=== PATIENT | male | born 1970 | race Caucasian/White ===

== ENCOUNTER 2018-02-26 17:56 | Observation (INO) | payer BC ==
[~2018-02-26] VITALS: Ht 177.8 cm; Wt 70.0 kg
[2018-02-26] MEDS ORDERED: SODIUM CHLOR 0.9% 1000 ML INJ 1,000 ML IV ONE ×2 (18:05→18:15)
[2018-02-26 18:08] VITALS: BP 129/73; PULSE 66; RESP 16; TEMP 98.7; O2SAT 98
--- NOTE | 2018-02-26 18:08 | PD ---
HPI Chief Complaint: Overdose Time Seen by Provider: 18:03 Travel History International Travel<30 days: No Contact w/Intl Traveler<30days: No History of Present Illness HPI 47-year-old male arrives by EMS due to multiple medication overdose. Patient reportedly took two hundred 100 mg gabapentin tablets, forty 40 mg Prozac tablets and ten 0.5 mg Xanax tablets approximately 4 hours prior to ER arrival. The ingestion was a suicide attempt. History is provided by EMS. [facility] Social History Tobacco Use: No Allergies-Medications (Allergen,Severity, Reaction): Coded Allergies: paroxetine (Verified Allergy, Unknown, Rash, 02/26/18) Review of Systems ROS Limitations: Altered Mental Status, Uncooperative General / Constitutional: No: Fever Physical Exam Narrative GENERAL: 47-year-old male pleasant well-nourished well-developed Vital Signs Date Time Temp Pulse Resp B/P (MAP) Pulse Ox O2 Delivery O2 Flow Rate FiO2 02/26/18 18:24 68 16 128/76 (93) 98 Room Air 02/26/18 18:09 66 17 96 Room Air 02/26/18 18:08 98.7 66 16 129/73 (91) 98 SKIN: Warm and dry. HEAD: Atraumatic. Normocephalic. EYES: Pupils equal and round. No scleral icterus. No injection or drainage. ENT: No nasal bleeding or discharge. Mucous membranes pink and moist. NECK: Trachea midline. No JVD. CARDIOVASCULAR: Regular rate and rhythm. RESPIRATORY: No accessory muscle use. Clear to auscultation. Breath sounds equal bilaterally. GASTROINTESTINAL: Abdomen soft, non-tender, nondistended. Hepatic and splenic margins not palpable. MUSCULOSKELETAL: Extremities without clubbing, cyanosis, or edema. No obvious deformities. NEUROLOGICAL: Awake and alert. No obvious cranial nerve deficits. Motor grossly within normal limits. Five out of 5 muscle strength in the arms and legs. Normal speech. PSYCHIATRIC: Apparent suicidal attempt. Data Data Last Documented VS Vital Signs Date Time Temp Pulse Resp B/P (MAP) Pulse Ox O2 Delivery O2 Flow Rate FiO2 02/26/18 18:24 68 16 128/76 (93) 98 Room Air 02/26/18 18:08 98.7 Orders Orders Electrocardiogram (02/26/18 18:05) Complete Blood Count With Diff (02/26/18 18:05) Comprehensive Metabolic Panel (02/26/18 18:05) Prothrombin Time / Inr (Pt) (02/26/18 18:05) Act Partial Throm Time (Ptt) (02/26/18 18:05) Iv Access Insert/Monitor (02/26/18 18:05) Cath For Specimen (02/26/18 18:05) Ecg Monitoring (02/26/18 18:05) Oximetry (02/26/18 18:05) Psych Screen (02/26/18 18:05) Charcoal Activated Liq (Actidose-Aqua Li (02/26/18 18:15) Sodium Chloride 0.9% Flush (Ns Flush) (02/26/18 18:15) Sodium Chlor 0.9% 1000 Ml Inj (Ns 1000 M (02/26/18 18:05) Call Poison Control (02/26/18 18:05) Drug Screen, Random Urine (02/26/18 18:05) Alcohol (Ethanol) (02/26/18 18:05) Salicylates (Aspirin) (02/26/18 18:05) Tylenol (Acetaminophen) (02/26/18 18:05) Sodium Chlor 0.9% 1000 Ml Inj (Ns 1000 M (02/26/18 18:15) Admit Order (Ed Use Only) (02/26/18 ) Equalizing Saw Operator / Telemetry LONG.Q8H (02/26/18 19:52) Vital Signs (Adult) Q4H (02/26/18 19:52) Activity Bed Rest (02/26/18 19:52) Labs Laboratory Tests Test 02/26/18 18:23 White Blood Count 7.1 TH/MM3 Red Blood Count 4.53 MIL/MM3 Hemoglobin 15.7 GM/DL Hematocrit 45.3 % Mean Corpuscular Volume 100.0 FL Mean Corpuscular Hemoglobin 34.6 PG Mean Corpuscular Hemoglobin Concent 34.6 % Red Cell Distribution Width 13.9 % Platelet Count 245 TH/MM3 Mean Platelet Volume 8.2 FL Neutrophils (%) (Auto) 69.5 % Lymphocytes (%) (Auto) 20.4 % Monocytes (%) (Auto) 8.7 % Eosinophils (%) (Auto) 0.6 % Basophils (%) (Auto) 0.8 % Neutrophils # (Auto) 5.0 TH/MM3 Lymphocytes # (Auto) 1.5 TH/MM3 Monocytes # (Auto) 0.6 TH/MM3 Eosinophils # (Auto) 0.0 TH/MM3 Basophils # (Auto) 0.1 TH/MM3 CBC Comment DIFF FINAL Differential Comment Prothrombin Time 11.3 SEC Prothromb Time International Ratio 1.1 RATIO Activated Partial Thromboplast Time 25.6 SEC Blood Urea Nitrogen 11 MG/DL Creatinine 0.89 MG/DL Random Glucose 91 MG/DL Total Protein 7.7 GM/DL Albumin 4.2 GM/DL Calcium Level 8.8 MG/DL Alkaline Phosphatase 69 U/L Aspartate Amino Transf (AST/SGOT) 21 U/L Alanine Aminotransferase (ALT/SGPT) 32 U/L Total Bilirubin 0.7 MG/DL Sodium Level 141 MEQ/L Potassium Level 4.0 MEQ/L Chloride Level 108 MEQ/L Carbon Dioxide Level 28.9 MEQ/L Anion Gap 4 MEQ/L Estimat Glomerular Filtration Rate 91 ML/MIN Salicylates Level LESS THAN 1.7 MG/DL Acetaminophen Level LESS THAN 2.0 MCG/ML Ethyl Alcohol Level LESS THAN 3 MG/DL MDM Medical Decision Making Medical Screen Exam Complete: Yes Emergency Medical Condition: Yes Medical Record Reviewed: Yes Differential Diagnosis Altered mental status/psychosis due to infection/environmental exposure/ metabolic abnormality, polypharmacy, alcohol abuse/intoxication, illicit or prescribed drug abuse, malingering/secondary gain, non-organic psychiatric disease Narrative Course .CBC & BMP Diagram 02/26/18 18:23 Total Protein 7.7, Albumin 4.2, Calcium Level 8.8, Alkaline Phosphatase 69, Aspartate Amino Transf (AST/SGOT) 21, Alanine Aminotransferase (ALT/SGPT) 32, Total Bilirubin 0.7 Salicylates < 1.7 apap < 2.0 EtOH < 3 The patient has remained hemodynamically normal in the ER. Given the quantity of overdose medications ongoing monitoring considered appropriate. Poison Control Center advised ongoing supportive care along with a repeat EKG at 2 hours following the initial one. Both EKGs reveal no ischemic injury pattern preexcitation or interval prolongation. d/w Dr Moreon Critical Care Narrative Aggregate critical care time was 35 minutes. Time to perform other separately billable procedures was not included in the critical care time. My time did not include minutes spent treating any other patients simultaneously or on activities that did not directly contribute to the patient's treatment. The services I provided to this patient were to treat and/or prevent clinically significant deterioration that could result in: due to overdose I provided critical care services requiring my management, as noted below: Chart data review, documentation time, medication orders and management, vital sign assessments/reviewing monitor data, ordering and reviewing lab tests, ordering and interpreting/reviewing x-rays and diagnostic studies, care of the patient and discussion of the patient with the admitting physicians. Diagnosis Primary Impression: Gabapentin overdose Qualified Codes: T42.6X2A - Poisoning by other antiepileptic and sedative- hypnotic drugs, intentional self-harm, initial encounter Additional Impressions: Benzodiazepine overdose Qualified Codes: T42.4X2A - Poisoning by benzodiazepines, intentional self- harm, initial encounter Intentional SSRI (selective serotonin reuptake inhibitor) overdose Qualified Codes: T43.222A - Poisoning by selective serotonin reuptake inhibitors, intentional self-harm, initial encounter Admitting Information Admitting Physician Requests: Han Wray MD Feb 26, 2018 18:08
[2018-02-26] MEDS ORDERED: SODIUM CHLORIDE 0.9% FLUSH 10 ML FLUSH IVF PRN (18:15)
[2018-02-26] MEDS ORDERED: ACTIVATED CHARCOAL LIQUID 25 GM/120 ML BTL PO/NG ONE (18:15)
[2018-02-26 18:24] VITALS: BP 128/76; PULSE 68; RESP 16; O2SAT 98
[2018-02-26 18:33] LABS: BASOPHIL # 0.1 TH/MM3 (0-0.2); BASOPHIL % 0.8 % (0.0-2.0); EOSINOPHIL % 0.6 % (0.0-4.0); HEMATOCRIT 45.3 % (39.0-51.0); HEMOGLOBIN 15.7 GM/DL (13.0-17.0); LYMPH % 20.4 % (9.0-44.0); LYMPHOCYTE # 1.5 TH/MM3 (1.0-4.8); MEAN CORPUSCULAR HEMOGLOBIN 34.6 PG (27.0-34.0); MEAN CORPUSCULAR HGB CONC 34.6 % (32.0-36.0); MEAN PLATELET VOLUME 8.2 FL (7.0-11.0); MONO % 8.7 % (0.0-8.0); MONOCYTE # 0.6 TH/MM3 (0-0.9); NEUT % 69.5 % (16.0-70.0); PLATELET COUNT 245 TH/MM3 (150-450); RED BLOOD COUNT 4.53 MIL/MM3 (4.50-5.90); RED CELL DISTRIBUTION WIDTH 13.9 % (11.6-17.2); WHITE BLOOD COUNT 7.1 TH/MM3 (4.0-11.0)
[2018-02-26 18:51] LABS: INTERNATIONAL NORMALIZED RATIO 1.1 RATIO; PROTHROMBIN TIME - PATIENT 11.3 SEC (9.8-11.6)
[2018-02-26 18:53] LABS: ALBUMIN 4.2 GM/DL (3.4-5.0); BICARBONATE 28.9 MEQ/L (21.0-32.0); BLOOD UREA NITROGEN 11 MG/DL (7-18); CALCIUM 8.8 MG/DL (8.5-10.1); CHLORIDE 108 MEQ/L (98-107); CREATININE 0.89 MG/DL (0.60-1.30); GLOMERULAR FILTRATION RATE 91 ML/MIN (>89); GLUCOSE,RANDOM 91 MG/DL (74-106); SODIUM (NA) 141 MEQ/L (136-145)
[2018-02-26 18:55] LABS: AST (GOT) 21 U/L (15-37)
[2018-02-26 18:59] LABS: ALKALINE PHOSPHATASE 69 U/L (45-117); ALT (GPT) 32 U/L (12-78); TOTAL BILIRUBIN ADULT 0.7 MG/DL (0.2-1.0); TOTAL PROTEIN 7.7 GM/DL (6.4-8.2)
[2018-02-26 19:01] LABS: ACETAMINOPHEN LESS THAN 2.0 MCG/ML (10.0-30.0)
[2018-02-26 19:58] VITALS: BP 121/75; PULSE 60; RESP 20; TEMP 98; O2SAT 98
--- NOTE | 2018-02-26 20:14 | HHI.HP ---
[facility] [place] [facility] Primary Care Physician No Primary Care Physician Admission Diagnosis Gabapentin/Xanax/Prozac Overdose Diagnoses: (1) Overdose Diagnosis: Principal (2) Suicide attempt Diagnosis: Principal Travel History International Travel<30 Days: No Contact w/Intl Traveler <30 Da: No Traveled to Known Affected Are: No History of Present Illness This is a 47-year-old male with a PMH of Depression who was brought to the ER under Leiva Act for intentional overdose. Pt states he took approx 200 tablets of Gabapentin 100mg, 40 tablets of Prozac 40mg and 10 tablets of Xanax 0.5mg at approx 15:00. Pt apparently called his work and told them he was going to overdose and kill himself due to issue at work where money was missing and he was told he didn't follow procedure. S/p Activated Charcoal in ER. Lethargic, but arousable and conversive. BP 129/73, HR 66, O2 sat 98% RA, Afebrile. CBC unremarkable. Chemistry essentially unremarkable. INR 1.1. Urine Drug Screen positive for Benzo. Alcohol negative. Tylenol negative. Salicylate negative. Review of Systems Except as stated in HPI: all other systems reviewed are Neg ROS: 14 point review of systems otherwise negative. Past Family Social History Past Medical History PMH: Depression Past Surgical History PAST SURGICAL HISTORY: None Allergies: Coded Allergies: paroxetine (Verified Allergy, Unknown, Rash, 02/26/18) Family History PAST FAMILY HISTORY: Reviewed. No h/o DM or CAD Social History PAST SOCIAL HISTORY: Reportedly negative for alcohol, tobacco or drugs. Physical Exam Vital Signs Vital Signs Date Time Temp Pulse Resp B/P (MAP) Pulse Ox O2 Delivery O2 Flow Rate FiO2 02/26/18 19:58 98.0 60 20 121/75 (90) 98 Room Air 02/26/18 18:24 68 16 128/76 (93) 98 Room Air 02/26/18 18:09 66 17 96 Room Air 02/26/18 18:08 98.7 66 16 129/73 (91) 98 Physical Exam PE: GENERAL: Middle-aged white male in no acute distress, lethargic but conversive, able to answer questions. HEENT: PERRLA, EOMI. No scleral icterus or conjunctival pallor. No lid lag or facial droop. CARDIOVASCULAR: Regular rate and rhythm. No obvious murmurs to auscultation. No chest tenderness to palpation. RESPIRATORY: No obvious rhonchi or wheezing. Clear to auscultation. Breath sounds equal bilaterally. GASTROINTESTINAL: Abdomen soft, non-tender, nondistended. BS normal. MUSCULOSKELETAL: Extremities without clubbing, cyanosis, or edema. No obvious deformities. NEUROLOGICAL: Lethargic but arousable, oriented x4. No focal neurologic deficits. Moving both upper and lower extremities spontaneously. Laboratory Laboratory Tests Test 02/26/18 18:23 White Blood Count 7.1 Red Blood Count 4.53 Hemoglobin 15.7 Hematocrit 45.3 Mean Corpuscular Volume 100.0 Mean Corpuscular Hemoglobin 34.6 Mean Corpuscular Hemoglobin Concent 34.6 Red Cell Distribution Width 13.9 Platelet Count 245 Mean Platelet Volume 8.2 Neutrophils (%) (Auto) 69.5 Lymphocytes (%) (Auto) 20.4 Monocytes (%) (Auto) 8.7 Eosinophils (%) (Auto) 0.6 Basophils (%) (Auto) 0.8 Neutrophils # (Auto) 5.0 Lymphocytes # (Auto) 1.5 Monocytes # (Auto) 0.6 Eosinophils # (Auto) 0.0 Basophils # (Auto) 0.1 CBC Comment DIFF FINAL Differential Comment Prothrombin Time 11.3 Prothromb Time International Ratio 1.1 Activated Partial Thromboplast Time 25.6 Blood Urea Nitrogen 11 Creatinine 0.89 Random Glucose 91 Total Protein 7.7 Albumin 4.2 Calcium Level 8.8 Alkaline Phosphatase 69 Aspartate Amino Transf (AST/SGOT) 21 Alanine Aminotransferase (ALT/SGPT) 32 Total Bilirubin 0.7 Sodium Level 141 Potassium Level 4.0 Chloride Level 108 Carbon Dioxide Level 28.9 Anion Gap 4 Estimat Glomerular Filtration Rate 91 Salicylates Level LESS THAN 1.7 Acetaminophen Level LESS THAN 2.0 Ethyl Alcohol Level LESS THAN 3 Result Diagram: 02/26/18 18202/[id number]/181822 Caprini VTE Risk Assessment Caprini VTE Risk Assessment: No/Low Risk (score <= 1) Caprini Risk Assessment Model Point Value = 1 Point Value = 2 Point Value = 3 Point Value = 5 Age 41-60 Minor surgery BMI > 25 kg/m2 Swollen legs Varicose veins or History of unexplained or recurrent spontaneous Oral contraceptives or hormone replacement Sepsis (< 1 month) Serious lung disease, including pneumonia (< 1 month) Abnormal pulmonary function Acute myocardial infarction Congestive heart failure (< 1 month) History of inflammatory bowel disease Medical patient at bed rest Age 61-74 Arthroscopic surgery Major open surgery (> 45 min) Laparoscopic surgery (> 45 min) Malignancy Confined to bed (> 72 hours) Immobilizing plaster cast Central venous access Age >= 75 History of VTE Family history of VTE Factor V Leiden Prothrombin [id number] Lupus anticoagulant Anticardiolipin antibodies Elevated serum homocysteine Heparin-induced thrombocytopenia Other congenital or acquired thrombophilia Stroke (< 1 month) Elective arthroplasty Hip, pelvis, or leg fracture Acute spinal cord injury (< 1 month) Prophylaxis Regimen Total Risk Factor Score Risk Level Prophylaxis Regimen 0-1 Low Early ambulation 2 Moderate Order ONE of the following: *Sequential Compression Device (SCD) *Heparin 5000 units SQ BID 3-4 Higher Order ONE of the following medications: *Heparin 5000 units SQ TID *Enoxaparin/Lovenox 40 mg SQ daily (WT < 150 kg, CrCl > 30 mL/min) *Enoxaparin/Lovenox 30 mg SQ daily (WT < 150 kg, CrCl > 10-29 mL/min) *Enoxaparin/Lovenox 30 mg SQ BID (WT < 150 kg, CrCl > 30 mL/min) AND/OR *Sequential Compression Device (SCD) 5 or more Highest Order ONE of the following medications: *Heparin 5000 units SQ TID (Preferred with Epidurals) *Enoxaparin/Lovenox 40 mg SQ daily (WT < 150 kg, CrCl > 30 mL/min) *Enoxaparin/Lovenox 30 mg SQ daily (WT < 150 kg, CrCl > 10-29 mL/min) *Enoxaparin/Lovenox 30 mg SQ BID (WT < 150 kg, CrCl > 30 mL/min) AND *Sequential Compression Device (SCD) Assessment and Plan Problem List: (1) Overdose ICD Code: T50.901A - Poisoning by unspecified drugs, medicaments and biological substances, accidental (unintentional), initial encounter (2) Suicide attempt ICD Code: T14.91XA - Suicide attempt, initial encounter Assessment and Plan A/P: 1. Overdose: Intentional overdose, took approx 200 tablets of Gabapentin 100mg , 40 tablets of Prozac 40mg and 10 tablets of Xanax 0.5mg approx 4 hours prior to arrival. S/p activated charcoal. Admit for Observation, Telemetry, Seizure Precautions, IVF, Neuro Cheks. 2. Suicide Attempt: intentional drug overdose in attempt to kill himself, currently under Leiva Act, consult Psych, Sitter. 3. DVT Prophylaxis: SCD/Teds 4. Social work for d/c planning as needed. 5. Case discussed w/ ER physician at length, labs/records reviewed by me. Pebbles Moreno MD Feb 26, 2018 20:14
[2018-02-26] MEDS ORDERED: SODIUM CHLORIDE 0.9% FLUSH 10 ML FLUSH IV FLUSH PRN (20:15)
[2018-02-26] MEDS ORDERED: LACTULOSE SYRUP 20 GM/30 ML CUP PO PRN (20:15)
[2018-02-26] MEDS ORDERED: BISACODYL 10 MG SUPP RECTAL PRN (20:15)
[2018-02-26] MEDS ORDERED: ONDANSETRON HCL 4 MG/2 ML VIAL IVP PRN (20:15)
[2018-02-26] MEDS ORDERED: MAGNESIUM HYDROXIDE SUSP 30 ML CUP PO PRN (20:15)
[2018-02-26] MEDS ORDERED: ACETAMINOPHEN 325 MG TAB PO PRN (20:15)
[2018-02-26] MEDS ORDERED: SENNOSIDES 8.6 MG TAB PO PRN (20:15)
[2018-02-26] MEDS: SODIUM CHLOR 0.9% 1000 ML INJ 1,000 ML IV SCH (20:39)
[2018-02-26] MEDS: SODIUM CHLORIDE 0.9% FLUSH 10 ML FLUSH IV FLUSH SCH (20:40)
[2018-02-26] MEDS: DOCUSATE SODIUM 50 MG/SENNA 8.6 MG TAB PO SCH (21:00)
[2018-02-26 22:00] VITALS: BP 113/61; PULSE 60; RESP 20; O2SAT 98
[2018-02-27] VITALS (9 sets, daily range): BP systolic 103–129; BP diastolic 54–74; PULSE 6–64; RESP 16–20; TEMP 96.3–98.2; O2SAT 95–98
[2018-02-27] MEDS ORDERED: GABA100C4 PO (02:11)
[2018-02-27] MEDS ORDERED: ALPR0.5T3 PO (02:11)
[2018-02-27] MEDS ORDERED: FLUO40CA PO (02:11)
[2018-02-27] MEDS: SODIUM CHLOR 0.9% 1000 ML INJ 1,000 ML IV SCH ×2 (06:02→16:48)
[2018-02-27] MEDS: SODIUM CHLORIDE 0.9% FLUSH 10 ML FLUSH IV FLUSH SCH ×2 (09:00→21:03)
[2018-02-27] MEDS: DOCUSATE SODIUM 50 MG/SENNA 8.6 MG TAB PO SCH ×2 (09:00→21:00)
[2018-02-27 09:25] LABS: AUTOMATED NEUTROPHIL # 6.1 TH/MM3 (1.8-7.7); BASOPHIL % 0.3 % (0.0-2.0); EOSINOPHIL # 0.1 TH/MM3 (0-0.4); EOSINOPHIL % 0.7 % (0.0-4.0); HEMATOCRIT 41.1 % (39.0-51.0); HEMOGLOBIN 13.9 GM/DL (13.0-17.0); LYMPH % 14.4 % (9.0-44.0); LYMPHOCYTE # 1.1 TH/MM3 (1.0-4.8); MEAN CELL VOLUME 99.8 FL (80.0-100.0); MEAN CORPUSCULAR HEMOGLOBIN 33.7 PG (27.0-34.0); MEAN CORPUSCULAR HGB CONC 33.8 % (32.0-36.0); MEAN PLATELET VOLUME 8.5 FL (7.0-11.0); MONO % 8.2 % (0.0-8.0); MONOCYTE # 0.7 TH/MM3 (0-0.9); NEUT % 76.4 % (16.0-70.0); PLATELET COUNT 220 TH/MM3 (150-450); RED BLOOD COUNT 4.12 MIL/MM3 (4.50-5.90); RED CELL DISTRIBUTION WIDTH 13.5 % (11.6-17.2)
[2018-02-27 10:09] LABS: ALBUMIN 3.3 GM/DL (3.4-5.0); ALKALINE PHOSPHATASE 56 U/L (45-117); ALT (GPT) 23 U/L (12-78); AST (GOT) 14 U/L (15-37); BICARBONATE 26.1 MEQ/L (21.0-32.0); BLOOD UREA NITROGEN 8 MG/DL (7-18); CALCIUM 8.3 MG/DL (8.5-10.1); CHLORIDE 113 MEQ/L (98-107); CREATININE 0.75 MG/DL (0.60-1.30); GLOMERULAR FILTRATION RATE 111 ML/MIN (>89); GLUCOSE,RANDOM 95 MG/DL (74-106); SODIUM (NA) 145 MEQ/L (136-145); TOTAL BILIRUBIN ADULT 0.6 MG/DL (0.2-1.0); TOTAL PROTEIN 6.2 GM/DL (6.4-8.2)
--- NOTE | 2018-02-27 10:46 | PD.PSY.CON ---
Provisional Diagnosis Admission Date Feb 26, 2018 at 19:53 [place] I. 1. Adjustment disorder with disturbance of emotions and conduct [place] II. Deferred History of Present Illness Service Psychiatry Consult Requested By Dr. Moreno Reason for Consult Intentional overdose. Leiva act. Primary Care Physician No Primary Care Physician HPI Mr. Milan is a 47-year-old male with a history of depression and anxiety who presents under a [place]iva act by law enforcement alleging that the patient advised officers that he had overdosed on alprazolam because he wanted to . Patient told the ED provider that he had overdosed on gabapentin, Prozac and Xanax. He is presently admitted medically for observation following overdose. Reviewing the electronic medical record, I see no previous psychiatric contact within our system. Patient seen and examined. Chart reviewed. 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 He denies stealing any money and says that this is due to faulty accounting practices. He initially says that this overdose was impulsive but then admits that he had been researching online for several days prior to making the overdose on what medications would be adequately lethal for the task. He is ambivalent about surviving his suicide attempt. Mood remains depressed and frustrated. Sleep and appetite are fair. He does endorse some hopeless and worthless feelings. He denies any ongoing suicidal ideation and contracts for safety on the inpatient unit. He denies any homicidal ideation. I can elicit no hypomanic or manic symptoms. He denies any audiovisual hallucinations presently or in the past. I can elicit no paranoia, no ideas of reference, no thought insertion or withdrawal or grandiosity or other delusional material. The remainder of the psychiatric ROS is negative. The patient has no acute physical complaints. Past psychiatric history: The patient reports a history of depression and anxiety. He follows with Dr. Zambrano who prescribes him the Prozac, Xanax and gabapentin. He denies a history of psychiatric admissions. He does report that he overdosed about 8 years ago in a suicide attempt. He denies a history of violent behavior. Family history: The patient reports that anxiety and depression run in his family. He denies a family history of suicide. He reports that his grandfather had substance use issues. Chemical dependency history: No reported abuse of drugs or alcohol. Social history: The patient reports that he lives with his 84-year-old mother. He is single with no children. 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 He has several college credits. He denies any or legal history. Denies any access to guns or firearms. Denies any caodaism or spiritual beliefs. Denies any history of physical, verbal or sexual abuse or other trauma. Review of Systems Except as stated in HPI: all other systems reviewed are Neg Past Family Social History Coded Allergies: paroxetine (Verified Allergy, Unknown, Rash, 02/26/18) Past Medical History See electronic medical record Reported Medications Alprazolam (Alprazolam) 0.5 Mg Tab, 0.5 MG PO Q6H Y for ANXIETY, TAB 0 Refills 02/27/18 Gabapentin (Gabapentin) 100 Mg Cap, 200 MG PO TID, #90 CAP 0 Refills 02/27/18 Fluoxetine (Fluoxetine) 40 Mg Cap, 40 CAP PO DAILY, #30 CAP 0 Refills 02/27/18 Current Medications Medications (Trade) Dose Ordered Sig/Sohan Route Start Time Stop Time Status Last Admin (NS Flush) 2 ml UNSCH PRN IVF 02/26/18 18:15 Sodium Chloride 1,000 ml @ 100 mls/hr Q10H IV 02/26/18 20:12 02/27/18 06:02 (NS Flush) 2 ml UNSCH PRN IV FLUSH 02/26/18 20:15 (NS Flush) 2 ml BID IV FLUSH 02/26/18 21:00 (Zofran Inj) 4 mg Q6H PRN IVP 02/26/18 20:15 (Tylenol) 650 mg Q6H PRN PO 02/26/18 20:15 (Salima-Colace) 1 tab BID PO 02/26/18 21:00 (Milk Of Magnesia Liq) 30 ml Q12H PRN PO 02/26/18 20:15 (Senokot) 17.2 mg Q12H PRN PO 02/26/18 20:15 (Dulcolax Supp) 10 mg DAILY PRN RECTAL 02/26/18 20:15 (Lactulose Liq) 30 ml DAILY PRN PO 02/26/18 20:15 Patient's Strengths (min. 2) In a monitored setting. Verbally fluent. Physical Exam Physical examination was completed by the primary team. On my examination today , the patient appears to be in no acute physical distress. No motor abnormalities noted. Laboratories and vital signs reviewed: Vital Signs Vital Signs Date Time Temp Pulse Resp B/P (MAP) Pulse Ox O2 Delivery O2 Flow Rate FiO2 02/27/18 07:08 57 18 129/62 (84) 98 Room Air 02/27/18 02:00 98.2 Lab Results Test 02/26/18 18:23 02/26/18 20:15 02/27/18 08:45 White Blood Count 7.1 TH/MM3 8.0 TH/MM3 Red Blood Count 4.53 MIL/MM3 4.12 MIL/MM3 Hemoglobin 15.7 GM/DL 13.9 GM/DL Hematocrit 45.3 % 41.1 % Mean Corpuscular Volume 100.0 FL 99.8 FL Mean Corpuscular Hemoglobin 34.6 PG 33.7 PG Mean Corpuscular Hemoglobin Concent 34.6 % 33.8 % Red Cell Distribution Width 13.9 % 13.5 % Platelet Count 245 TH/MM3 220 TH/MM3 Mean Platelet Volume 8.2 FL 8.5 FL Neutrophils (%) (Auto) 69.5 % 76.4 % Lymphocytes (%) (Auto) 20.4 % 14.4 % Monocytes (%) (Auto) 8.7 % 8.2 % Eosinophils (%) (Auto) 0.6 % 0.7 % Basophils (%) (Auto) 0.8 % 0.3 % Neutrophils # (Auto) 5.0 TH/MM3 6.1 TH/MM3 Lymphocytes # (Auto) 1.5 TH/MM3 1.1 TH/MM3 Monocytes # (Auto) 0.6 TH/MM3 0.7 TH/MM3 Eosinophils # (Auto) 0.0 TH/MM3 0.1 TH/MM3 Basophils # (Auto) 0.1 TH/MM3 0.0 TH/MM3 CBC Comment DIFF FINAL DIFF FINAL Differential Comment Prothrombin Time 11.3 SEC Prothromb Time International Ratio 1.1 RATIO Activated Partial Thromboplast Time 25.6 SEC Blood Urea Nitrogen 11 MG/DL 8 MG/DL Creatinine 0.89 MG/DL 0.75 MG/DL Random Glucose 91 MG/DL 95 MG/DL Total Protein 7.7 GM/DL 6.2 GM/DL Albumin 4.2 GM/DL 3.3 GM/DL Calcium Level 8.8 MG/DL 8.3 MG/DL Alkaline Phosphatase 69 U/L 56 U/L Aspartate Amino Transf (AST/SGOT) 21 U/L 14 U/L Alanine Aminotransferase (ALT/SGPT) 32 U/L 23 U/L Total Bilirubin 0.7 MG/DL 0.6 MG/DL Sodium Level 141 MEQ/L 145 MEQ/L Potassium Level 4.0 MEQ/L 3.9 MEQ/L Chloride Level 108 MEQ/L 113 MEQ/L Carbon Dioxide Level 28.9 MEQ/L 26.1 MEQ/L Anion Gap 4 MEQ/L 6 MEQ/L Estimat Glomerular Filtration Rate 91 ML/MIN 111 ML/MIN Salicylates Level LESS THAN 1.7 MG/DL Acetaminophen Level LESS THAN 2.0 MCG/ML Ethyl Alcohol Level LESS THAN 3 MG/DL Urine Opiates Screen NEG Urine Barbiturates Screen NEG Urine Amphetamines Screen NEG Urine Benzodiazepines Screen POS Urine Cocaine Screen NEG Urine Cannabinoids Screen NEG Mental Status Examination Appearance: Appropriate Consciousness: Alert Orientation: x4 Motor Activity: Other (No motor abnormalities noted) Speech: Unremarkable Language: Adequate Fund of Knowledge: Adequate Attention and Concentration: Adequate Memory: Unremarkable Mood: Other (Depressed, frustrated) Affect: Blunt Thought Process & Associations: Intact, Logical, Linear Thought Content: Appropriate Hallucination Type: None Delusion Type: None Suicidal Ideation: No Suicidal Plan: No Suicidal Intention: No Homicidal Ideation: No Homicidal Plan: No Homicidal Intention: No Insight: Fair Judgment: Impulsive Assessment & Plan Problem List: (1) Adjustment disorder with mixed disturbance of emotions and conduct ICD Codes: F43.25 - Adjustment disorder with mixed disturbance of emotions and conduct Assessment & Plan 47-year-old male with psychiatric history as detailed above who presents under a Leiva act following overdose on multiple psychotropics. On my examination today, the patient reports that he made his overdose because he was recently terminated from his job. Patient initially tries to play his overdose off as impulsive but later admits there was significant planning regarding selecting agents of desired lethality. Although the patient is presently denying suicidal ideation, I believe that he is unreliable to contract for safety and requires psychiatric admission for safety, observation and perhaps stabilization. I will leave the Leiva act in place. I recommend that the patient be closely monitored on the observation unit and be placed with a sitter for safety. I recommend holding the patient's psychotropic medications acutely and defer psychotropic medication management to the inpatient psychiatric team. So long as the patient does not require telemetry and is otherwise appropriate for the unit, we might consider transferring to medical psychiatric unit as long as a bed is available. --BA remains in place --Sitter for safety --Hold psychotropics acutely. Consider CIWA if patient begins to withdraw from the Xanax. --Transfer to inpatient psych once medically clear or perhaps med psych. Case discussed with RN. Thank you very much for this consultation. Please call or page with questions. Arsalan Gomes MD Feb 27, 2018 10:46
--- NOTE | 2018-02-27 16:43 | EKG ---
Date Performed: 02/26/2018 Time Performed: 18:19:08 PTAGE: 47 years EKG: Sinus rhythm POSSIBLE LEFT ATRIAL ENLARGEMENT NONSPECIFIC T-WAVE ABNORMALITY BORDERLINE ECG NO PREVIOUS TRACING DOCTOR: Nima Padilla Interpretating Date/Time 02/27/2018 16:45:42
--- NOTE | 2018-02-27 16:56 | EKG ---
Date Performed: 02/26/2018 Time Performed: 20:22:11 PTAGE: 47 years EKG: SINUS BRADYCARDIA NONSPECIFIC T-WAVE ABNORMALITY BORDERLINE ECG Since the PREVIOUS TRACING , no significant change noted PREVIOUS TRACIN02/26/2018 20.21 DOCTOR: Nima Padilla Interpretating Date/Time 02/27/2018 16:52:31
--- NOTE | 2018-02-27 17:11 | HHI.PR ---
Subjective Remarks Pt seen and examined. VS reviewed. Sitter in the room. Pt reports he is feeling well. Endorses mild dizziness when he stands but otherwise denies CP, SOB, palpitations, lightheadedness, blurry vision, abdominal pain, nausea, or vomiting. Tolerating PO. Denies current SI. Agreeable to being admitted to psych. Objective Vital Signs Date Time Temp Pulse Resp B/P (MAP) Pulse Ox O2 Delivery O2 Flow Rate FiO2 02/27/18 17:07 64 02/27/18 14:45 96.3 61 18 119/67 (84) 97 02/27/18 14:42 02/27/18 12:48 60 16 109/71 (84) 96 Room Air 02/27/18 07:08 57 18 129/62 (84) 98 Room Air 02/27/18 05:00 52 20 103/54 (70) 97 Room Air 02/27/18 04:00 52 20 117/70 (86) 95 Room Air 02/27/18 02:00 98.2 54 20 116/74 (88) 95 Room Air 02/27/18 00:00 52 20 112/65 (81) 98 Room Air 02/26/18 22:00 60 20 113/61 (78) 98 Room Air 02/26/18 19:58 98.0 60 20 121/75 (90) 98 Room Air 02/26/18 18:24 68 16 128/76 (93) 98 Room Air 02/26/18 18:09 66 17 96 Room Air 02/26/18 18:08 98.7 66 16 129/73 (91) 98 Result Diagram: 02/27/18 0845 02/27/18 0845 Objective Remarks GENERAL: WN, WD male resting in bed in NAD. SKIN: Warm and dry. HEENT: AT/NC. Pupils equal and round. Slightly sluggish to react. MMM. NECK: Supple no tender LAD or JVD. HEART: RRR no m/r/g. LUNGS: CTAB without wheezes or crackles. ABDOMEN: +BS, soft, NT, ND. EXTREMITIES: No LE edema. 2+ pedal pulses. NEURO: Awake and alert. CN II-XII intact. Nonfocal. PSYCH: Depressed affect. Poor eye contact. A/P Assessment and Plan 47 year old male with history of depression admitted on 02/26 for attempted suicide by overdose. 1. Intentional overdose/suicide attempt - Patient took approximately 200 tablets of Gabapentin 100 mg, 40 tablets of Prozac 40mg, and 10 tablets of Xanax 0. 5mg approx 4 hours prior to arrival - Vital signs remain stable - Received activated charcoal in the ED - UDS negative except for benzos - Sitter - Seizure precautions and [facility] protocol for benzodiazepine withdrawal - Psych consulted and agreed to psych admission and continued Leiva Act DVT prophylaxis: SCDs. Ambulate. Discharge Planning Transfer to psych Isabel Solis MD Feb 27, 2018 17:11
[2018-02-27] MEDS ORDERED: LORazepam 2 MG/ML VIAL IV PUSH PRN ×4 (17:45)
[2018-02-27] MEDS ORDERED: LORazepam 2 MG TAB PO PRN (17:45)
[2018-02-27] MEDS ORDERED: LORazepam 1 MG TAB PO PRN (17:45)
[2018-02-27] MEDS ORDERED: FLUMAZENIL 0.5 MG/5 ML VIAL IV PUSH PRN (17:45)
[2018-02-28] VITALS: BP 111/64; PULSE 91; RESP 18; TEMP 98.4; O2SAT 95
[2018-02-28] MEDS: SODIUM CHLOR 0.9% 1000 ML INJ 1,000 ML IV SCH (02:12)
[2018-02-28 04:47] VITALS: BP 100/59; PULSE 61; RESP 20; TEMP 98; O2SAT 97
[2018-02-28 07:07] VITALS: BP 102/59; PULSE 96; RESP 18; TEMP 97.5; O2SAT 98
[2018-02-28] MEDS: SODIUM CHLORIDE 0.9% FLUSH 10 ML FLUSH IV FLUSH SCH (07:34)
[2018-02-28] MEDS: DOCUSATE SODIUM 50 MG/SENNA 8.6 MG TAB PO SCH (07:35)
--- NOTE | 2018-02-28 07:37 | HHI.DCPOC ---
Discharge Care Plan Diagnosis: (1) Suicide attempt (2) Overdose Goals to Promote Your Health * To prevent worsening of your condition and complications * To maintain your health at the optimal level Directions to Meet Your Goals Take your medications as prescribed Follow your dietary instruction Follow activity as directed Keep your appointments as scheduled Take your immunizations and boosters as scheduled If your symptoms worsen call your PCP, if no PCP go to Urgent Care Center or Emergency Room Smoking is Dangerous to Your Health. Avoid second hand smoke Call the 24-hour hour crisis hotline for domestic abuse at Gabbi Laird PA-C Feb 28, 2018 7:37 am
[2018-02-28 07:39] VITALS: PULSE 53
--- NOTE | 2018-02-28 08:15 | HHI.PR ---
Subjective Remarks Follow up for overdose, suicide attempt. The patient is currently awake, alert, oriented x4. He denies any current medical complaints including no headache, chest pain, palpitations, shortness of breath, or abdominal complaints. He did report some dizziness upon standing, however resolved. He agrees to admission to psychiatry. Vital signs reviewed and stable. Objective Vitals Vital Signs Date Time Temp Pulse Resp B/P (MAP) Pulse Ox O2 Delivery O2 Flow Rate FiO2 02/28/18 07:39 53 02/28/18 07:07 97.5 96 18 102/59 (73) 98 02/28/18 04:47 98.0 61 20 100/59 (73) 97 02/28/18 00:00 98.4 91 18 111/64 (80) 95 02/27/18 20:00 98.0 6 18 129/72 (91) 98 02/27/18 17:07 64 02/27/18 14:45 96.3 61 18 119/67 (84) 97 02/27/18 14:42 02/27/18 12:48 60 16 109/71 (84) 96 Room Air I/O 02/27/18 02/27/18 02/27/18 02/28/18 02/28/18 02/28/18 07:00 15:00 23:00 07:00 15:00 23:00 Intake Total 360 ml Balance 360 ml Intake Oral 360 ml # Voids 3 1 Result Diagram: 02/27/18 0845 02/27/18 0845 Imaging Alprazolam 0.5 Mg Tab 0.5 Mg PO Q6H PRN Gabapentin 100 Mg Cap 200 Mg PO TID Fluoxetine (Fluoxetine HCl) 40 Mg Cap 40 Cap PO DAILY Objective Remarks GENERAL: Well-nourished, well-developed middle aged male patient in [facility]. SKIN: Warm and dry. No rash. HEENT: Normocephalic. Atraumatic.Pupils equal and round. Mucous membranes pink and moist. NECK: Supple. Trachea midline. CARDIOVASCULAR: Regular rate and rhythm. No murmur appreciated. RESPIRATORY: No accessory muscle use. Clear to auscultation. Breath sounds equal bilaterally. GASTROINTESTINAL: Abdomen soft, non-tender, nondistended. Normoactive bowel sounds x4. MUSCULOSKELETAL: No obvious deformities. Extremities without clubbing, cyanosis , or edema. NEUROLOGICAL: Awake and alert. No obvious cranial nerve deficits. Motor grossly within normal limits. Normal speech. Medications and IVs Current Medications Medications (Trade) Dose Ordered Sig/Sohan Route Start Time Stop Time Status Last Admin (NS Flush) 2 ml UNSCH PRN IVF 02/26/18 18:15 Sodium Chloride 1,000 ml @ 100 mls/hr Q10H IV 02/26/18 20:12 02/27/18 16:48 (NS Flush) 2 ml UNSCH PRN IV FLUSH 02/26/18 20:15 (NS Flush) 2 ml BID IV FLUSH 02/26/18 21:00 02/27/18 21:03 (Zofran Inj) 4 mg Q6H PRN IVP 02/26/18 20:15 (Tylenol) 650 mg Q6H PRN PO 02/26/18 20:15 (Salima-Colace) 1 tab BID PO 02/26/18 21:00 (Milk Of Magnesia Liq) 30 ml Q12H PRN PO 02/26/18 20:15 (Senokot) 17.2 mg Q12H PRN PO 02/26/18 20:15 (Dulcolax Supp) 10 mg DAILY PRN RECTAL 02/26/18 20:15 (Lactulose Liq) 30 ml DAILY PRN PO 02/26/18 20:15 (Romazicon Inj) 0.2 mg Q1M PRN IV PUSH 02/27/18 17:45 (Ativan) 1 mg Q4H PRN PO 02/27/18 17:45 (Ativan Inj) 1 mg Q4H PRN IV PUSH 02/27/18 17:45 (Ativan) 2 mg Q2H PRN PO 02/27/18 17:45 (Ativan Inj) 2 mg Q2H PRN IV PUSH 02/27/18 17:45 (Ativan Inj) 2 mg Q1H PRN IV PUSH 02/27/18 17:45 (Ativan Inj) 2 mg Q15M PRN IV PUSH 02/27/18 17:45 A/P Problem List: (1) Overdose ICD Code: T50.901A - Poisoning by unspecified drugs, medicaments and biological substances, accidental (unintentional), initial encounter (2) Suicide attempt ICD Code: T14.91XA - Suicide attempt, initial encounter Assessment and Plan 47 year old male with history of depression admitted on 02/26 for attempted suicide by overdose. Intentional overdose/suicide attempt: Patient took approximately 200 tablets of Gabapentin 100 mg, 40 tablets of Prozac 40mg, and 10 tablets of Xanax 0. 5mg approx 4 hours prior to arrival - Vital signs remain stable - Received activated charcoal in the ED - UDS negative except for benzos - Continue Sitter - Seizure precautions and [facility] protocol for benzodiazepine withdrawal - Psych consulted and agreed to psych admission and continued Leiva Act - The patient is medically clear for discharge to inpatient psychiatry. DVT prophylaxis: SCDs. Ambulate. Discharge Planning Discharge patient to inpatient psychiatry Condition on discharge: Stable Regular Diet as tolerated Ad Jazmyn activity Rx written: no new meds. Follow-up with primary care physician and psychiatry Gabbi Laird PA-C Feb 28, 2018 8:15 am
== END 2018-02-28 10:53 ==
LOC: NEPD 17:56 → INTOOBSV 19:53 → NEDA 19:53 → NEDH 23:58 → NEPFCDU 02-27 14:47
PROVIDERS: ADMIT Internal Medicine; ATTEND Internal Medicine
DX: T42.4X2A Poisoning by benzodiazepines, intentional self-harm, initial encounter (principal); T42.6X2A Poisoning by other antiepileptic and sedative-hypnotic drugs, intentional self-harm, initial encounter; R94.31 Abnormal electrocardiogram [ECG] [EKG]; F43.25 Adjustment disorder with mixed disturbance of emotions and conduct; Z91.5 Personal history of self-harm; Z79.899 Other long term (current) drug therapy
CPT/HCPCS: 80053; 80307; 85025; 85610; 85730; 93005; 96360; 96361; 99291; G0378; J7030

== ENCOUNTER 2018-02-28 10:50 | Inpatient (IN) | payer BC ==
[~2018-02-28] VITALS: Ht 177.8 cm; Wt 73.8 kg
[~2018-02-28 10:50] MED LIST: ALPR0.5T3 PO; FLUO40CA PO; GABA100C4 PO
[2018-02-28] MEDS ORDERED: LORazepam 2 MG/ML VIAL IV PUSH PRN ×4 (11:45)
[2018-02-28] MEDS ORDERED: MAGNESIUM HYDROXIDE SUSP 30 ML CUP PO PRN (11:45)
[2018-02-28] MEDS ORDERED: LORazepam 2 MG TAB PO PRN (11:45)
[2018-02-28] MEDS ORDERED: NICOTINE 21 MG/24 HR PATCH T-DERMAL PRN (11:45)
[2018-02-28] MEDS ORDERED: LORazepam 1 MG TAB PO PRN (11:45)
[2018-02-28] MEDS ORDERED: FLUMAZENIL 0.5 MG/5 ML VIAL IV PUSH PRN (11:45)
[2018-02-28] MEDS ORDERED: ALUMINUM/MAGNESIUM/SIMETH 30 ML CUP PO PRN (11:45)
[2018-02-28 14:27] VITALS: BP 143/82; PULSE 67; RESP 18; TEMP 98.3; O2SAT 99
[2018-02-28 18:15] VITALS: BP 137/80; PULSE 76; RESP 18; TEMP 97.6; O2SAT 96
[2018-03-01 06:10] VITALS: BP 121/70; PULSE 59; RESP 16; TEMP 98.1; O2SAT 97
[2018-03-01 09:01] LABS: CHOLESTEROL 195 MG/DL (120-200); TRIGLYCERIDES 89 MG/DL (42-150)
[2018-03-01 09:07] LABS: HDL CHOLESTEROL 51.3 MG/DL (40.0-60.0); LDL CHOLESTEROL 126 MG/DL (0-99)
--- NOTE | 2018-03-01 13:10 | PD.CONS ---
HPI Service [facility] Consult Requested By Primary Care Physician Unknown Diagnoses: History of Present Illness Mr. Milan is a 47-year-old male. He was medically admitted secondary to a suicide attempt with Gabapentin, Prozac, and Xanax. She was monitored and medically cleared and his discharge psychiatry. Medical consult placed for further medical monitoring and management. Patient today expresses no muscular skeletal difficulties and says he has no GI upset including no nausea no vomiting, and no diarrhea. No reports of dysphoria. He is up and ambulatory with good balance, no tremors. Review of Systems Constitutional: DENIES: Fatigue, Fever, Chills Eyes: DENIES: Blurred vision, Diplopia, Eye inflammation Ears, nose, mouth, throat: DENIES: Hearing loss, Vertigo, Nasal discharge Respiratory: DENIES: Cough, Wheezing, Shortness of breath Cardiovascular: DENIES: Chest pain, Palpitations, Syncope Gastrointestinal: DENIES: Abdominal pain, Black stools, Bloody stools Musculoskeletal: DENIES: Joint pain, Muscle aches, Stiffness, Joint Swelling Integumentary: DENIES: Abnormal pigmentation, Nail changes, Pruritus, Rash Hematologic/lymphatic: DENIES: Bruising, Lymphadenopathy Immunologic/allergic: DENIES: Eczema, Urticaria Neurologic: DENIES: Abnormal gait, Headache, Paresthesias Psychiatric: COMPLAINS OF: Depression, Suicidal Ideation, DENIES: Anxiety, Confusion, Hallucinations Past Family Social History Allergies: Coded Allergies: paroxetine (Verified Allergy, Unknown, Rash, 02/26/18) Past Medical History Clinical depression Past Surgical History Patient denies any past surgical history Reported Medications Reported Meds & Active Scripts Active No Active Prescriptions or Reported Medications None Active Ordered Medications Administered Medications Medications (Trade) Dose Ordered Sig/Sohan Route PRN Reason Start Time Stop Time Status Last Admin Dose Admin Lorazepam (Ativan) 1 mg Q4H PRN PO CIWA 8 - 10 02/28/18 11:45 02/28/18 20:27 Family History Patient denies any positive family medical history Social History Patient reports no smoking, no alcohol abuse, no illicit drug abuse Physical Exam Vital Signs Vital Signs Date Time Temp Pulse Resp B/P (MAP) Pulse Ox O2 Delivery O2 Flow Rate FiO2 03/01/18 06:10 98.1 59 16 121/70 (87) 97 02/28/18 18:15 97.6 76 18 137/80 (99) 96 02/28/18 14:27 98.3 67 18 143/82 (102) 99 Physical Exam GENERAL: NAD, A&Ox3 HEAD: Normocephalic. NECK: Supple, trachea midline. No lymphadenopathy. EYES: No scleral icterus. No injection or drainage. CARDIOVASCULAR: Regular rate and rhythm without murmurs, gallops, or rubs. RESPIRATORY: Breath sounds equal bilaterally. No accessory muscle use. GASTROINTESTINAL: Abdomen soft, non-tender, nondistended. MUSCULOSKELETAL: No cyanosis, or edema. SKIN: Warm and dry. NEURO: No focal neurological deficitis. Laboratory Laboratory Tests Test 03/01/18 07:45 Triglycerides Level 89 Cholesterol Level 195 LDL Cholesterol 126 HDL Cholesterol 51.3 Cholesterol/HDL Ratio 3.80 Assessment and Plan Problem List: (1) Adjustment disorder with mixed disturbance of emotions and conduct ICD Code: F43.25 - Adjustment disorder with mixed disturbance of emotions and conduct (2) Suicide attempt ICD Code: T14.91XA - Suicide attempt, initial encounter (3) Overdose ICD Code: T50.901A - Poisoning by unspecified drugs, medicaments and biological substances, accidental (unintentional), initial encounter Assessment and Plan 47-year-old male admitted secondary to suicide attempt with overdose Adjustment disorder with mixed disturbances of emotion and conduct Suicide attempt Continue management per psychiatry Gabapentin overdose Prozac overdose Xanax overdose CBC and CMP in a.m. If labs remain stable no further need for monitoring DVT prophylaxis Patient is presently ambulatory Han Fisher MD Mar 01, 2018 13:10
[2018-03-01] MEDS: busPIRone HCL 5 MG TAB PO SCH ×2 (14:30→21:18)
[2018-03-01] MEDS: FLUoxetine HCL 20 MG CAP PO SCH (14:30)
[2018-03-01 16:59] LABS: HEMOGLOBIN A1C 5.5 % (4.3-6.0)
[2018-03-01 17:16] VITALS: BP 138/69; PULSE 56; RESP 16; TEMP 98; O2SAT 98
--- NOTE | 2018-03-01 18:02 | HHI.HP ---
Provisional Diagnosis Admission Date Feb 28, 2018 at 10:50 [place] I. Major depressive disorder, recurrent, severe without psychotic features; unspecified anxiety disorder Certification of Person's Competence To Provide Express and Informed Consent I have personally examined Scotty iMlan , a person being served at [facility] on, Mar 01, 2018 17:41. Express and informed consent means consent voluntarily given in writing, by a competent person, after sufficient explanation and disclosure of the subject matter involved to enable the person to make a knowing and willful decision without any element of force, fraud, deceit, duress, or other form of constraint or coercion. This person is 18 years of age or older, is not now known to be incompetent to consent to treatment with a guardian advocate, and does not have a health care surrogate or proxy currently making medical treatment decisions. I have found this person to be one of the following: [xxx] Competent to provide express and informed consent, as defined above, for voluntary admission to this facility and is competent to provide express and informed consent for treatment. He/she has the consistent capacity to make well reasoned, willful, and knowing decisions concerning his or her medical or mental health treatment. The person fully and consistently understands the purpose of the admission for examination/placement and is fully capable of personally exercising all rights assured [place] Incompetent to provide express and informed consent to voluntary admission, and this is incompetent to provide express and informed consent to treatment. The person must be transferred to involuntary status and a petition for a guardian advocate filed with the Circuit Court. [] Refusing to provide express and informed consent to voluntary admission but is competent to provide express and informed consent for treatment. The person must be discharged or transferred to involuntary status. Form shall be completed within 24 hours of a person's arrival at the receiving facility and filed in the clinical record of each person: 1. Admitted on a voluntary basis 2. Permitted to provide express and informed consent to his/her own treatment 3. Allowed to transfer from involuntary to voluntary status 4. Prior to permitting a person to consent to his or her own treatment after having been previously found incompetent to consent to treatment. History of Present Illness Capacity: Has Capacity HPI Patient is a 47-year-old man, single, no children, domiciled with mother, employed, with a past psychiatric history of depression and anxiety, no previous psychiatric admissions, one previous suicide attempt at the age 13 via overdose, no history of self-injurious behavior, currently followed by outpatient psychiatrist Dr. Chavis, currently on Xanax 0.5 mg p.o. 4 times daily , Prozac 40 mg daily, and gabapentin 200 mg 4 times daily with substance use history significant for remote polysubstance use disorder, no medical history, who was brought in under Leiva act after patient had suicide attempt via overdose which patient was admitted to the inpatient psychiatry for further evaluation and management. As per chart [employer] act states that photographic supervisor at [facility] and call patient and reported patient had consumed large amount of narcotics. Patient feeling being a burden to his mother and employer. Patient overdosed on alprazolam to . Patient was found sitting in hospital bed B, cooperative, seen by ghost writer, nurse and counselor. Patient states "I have "broken record syndrome" referring to his ongoing treatment for depression and anxiety. Patient states he had been feeling stressed with his mother wanting to move out of the home but unable to due to financial difficulties. Patient states that he had overdosed on his medications while he was in his vehicle parked and had contacted his coworker he was soon be arriving to his work but also had reported that he had overdosed on his medications which please have been alerted and found patient in vehicle after he had passed out and brought to the hospital. Patient states he has been having suicide ideations for the past 2 weeks, has been researching on effects of his medications if overdosed on his medications, and had specific plan 1 week ago. Patient reports that his stressors have been having received a final notice at work due to mismanagement of [employer]. Patient states that he has also been very stressed with his relationship with his mother and earlier today had spoken to her over the phone and was told "are you done playing tricks" which he feels that he is not supported by his mother for his mental illness. Patient states that he had been having difficulty with sleep lately with decreased energy, and appetite along with feeling depressed for the past couple of weeks and suicide ideations. Patient currently reports feeling anxious denying any suicide ideations at this time and states that he is glad to be alive. Patient denies any perceptual services or delusions at this time. Family psychiatric history: Sister niece diagnosed with depression and anxiety, no suicides in the family Past psychiatric history: Previous psychiatric diagnosis of depression and anxiety, no psychiatric admissions, one remote suicide attempt at the age of 13 via overdose, no history of self-injurious behavior, no history of abuse. Patient currently with outpatient psychiatrist Dr. Chavis, last seen a couple of weeks ago, currently on Xanax 0.5 mg 4 times daily, Prozac 40 mg daily, gabapentin 200 mg 4 times daily. Substance use history: Remote history of marijuana, crack, cocaine, ecstasy, prescription of Vicodin use. Patient denies any use of any alcohol, denies any previous rehabilitation or detox programs. Past medical history: Denies Allergies: Paxil Social history: Single, no children, domiciled with mother, employed, no legal history, no history of service, no access to firearms, highest education is some college courses. Review of Systems Except as stated in HPI: all other systems reviewed are Neg Past Psych History Psychological trauma history Denies Violence risk - others (6 mos) Low Violence risk - self (6 mos) Elevated due to recent suicide attempt and history of previous suicide attempt. Substance Abuse History Drugs/Alcohol past 12 months Remote history of marijuana, crack, cocaine, ecstasy, prescription of Vicodin use. Patient denies any use of any alcohol, denies any previous rehabilitation or detox programs. Past Family Social History Coded Allergies: paroxetine (Verified Allergy, Unknown, Rash, 02/26/18) Discontinued Reported Medications Alprazolam (Alprazolam) 0.5 Mg Tab, 0.5 MG PO Q6H Y for ANXIETY, TAB 0 Refills 02/27/18 Gabapentin (Gabapentin) 100 Mg Cap, 200 MG PO TID, #90 CAP 0 Refills 02/27/18 Fluoxetine (Fluoxetine) 40 Mg Cap, 40 CAP PO DAILY, #30 CAP 0 Refills 02/27/18 Current Medications Medications (Trade) Dose Ordered Sig/Sohan Route Start Time Stop Time Status Last Admin (Tylenol) 650 mg Q4H PRN PO 02/28/18 11:45 (Milk Of Magnesia Liq) 30 ml DAILY PRN PO 02/28/18 11:45 (Mag-Al Plus Susp Liq) 30 ml Q6H PRN PO 02/28/18 11:45 (Habitrol 21 Mg Patch.24 Hr) 1 patch DAILY PRN T-DERMAL 02/28/18 11:45 (Romazicon Inj) 0.2 mg Q1M PRN IV PUSH 02/28/18 11:45 (Ativan) 1 mg Q4H PRN PO 02/28/18 11:45 02/28/18 20:27 (Ativan Inj) 1 mg Q4H PRN IV PUSH 02/28/18 11:45 (Ativan) 2 mg Q2H PRN PO 02/28/18 11:45 (Ativan Inj) 2 mg Q2H PRN IV PUSH 02/28/18 11:45 (Ativan Inj) 2 mg Q1H PRN IV PUSH 02/28/18 11:45 (Ativan Inj) 2 mg Q15M PRN IV PUSH 02/28/18 11:45 (PROzac) 40 mg DAILY PO 03/01/18 14:30 03/01/18 14:30 (Buspar) 5 mg Q12HR PO 03/01/18 14:30 03/01/18 14:30 (Benadryl) 50 mg HS PRN PO 03/01/18 14:30 (Atarax) 50 mg Q6H PRN PO 03/01/18 14:30 Family Psych History Sister and niece with diagnosed depression and anxiety, no suicides in the family. Social History Single, no children, domiciled with mother, employed, no legal history, no history of service, no access to firearms, highest education is some college courses. Patient's Strengths (min. 2) Verbal and communicative Physical Exam Patient not noted to be acute distress, no gross motor of maladies, no signs of tremor or EPS, no psychomotor agitation or retardation. Vital Signs Vital Signs Date Time Temp Pulse Resp B/P (MAP) Pulse Ox O2 Delivery O2 Flow Rate FiO2 03/01/18 17:16 98.0 56 16 138/69 (92) 98 I/O 03/01/18 03/01/18 03/02/18 08:00 16:00 00:00 Intake Total 240 ml Balance 240 ml Lab Results Labs reviewed Test 03/01/18 07:45 Triglycerides Level 89 MG/DL Cholesterol Level 195 MG/DL LDL Cholesterol 126 MG/DL HDL Cholesterol 51.3 MG/DL Cholesterol/HDL Ratio 3.80 RATIO Mental Status Examination Appearance: Appropriate Consciousness: Alert Orientation: Person, Place, Date/Time Motor Activity: Normal gait Speech: Unremarkable Language: Adequate Fund of Knowledge: Inadequate Attention and Concentration: Adequate Memory: Unremarkable Mood: Anxious Affect: Anxious Thought Process & Associations: Linear Thought Content: Appropriate Hallucination Type: None Delusion Type: None Suicidal Ideation: Yes Suicidal Plan: No Suicidal Intention: No Homicidal Ideation: No Homicidal Plan: No Homicidal Intention: No Insight: Fair Judgment: Poor Assessment & Plan Problem List: (1) Severe episode of recurrent major depressive disorder, without psychotic features ICD Codes: F33.2 - Major depressive disorder, recurrent severe without psychotic features (2) Anxiety disorder, unspecified ICD Codes: F41.9 - Anxiety disorder, unspecified Assessment & Plan Estimated LOS: 5-7 days. Patient is a 47-year-old man who carries a diagnosis of depression and anxiety, no previous psychiatric admissions, room 1 remote suicide attempt via overdose at the age of 13, remote history of some polysubstance use disorder, who was brought under Leiva act after recent suicide attempt via overdose which patient at this time requires inpatient psychiatric stabilization. We will continue patient on fluoxetine 40 mg p.o. daily, start buspirone 5 mg p.o. twice daily with upper titration as needed for anxiety. Continue to monitor with behavior. Collateral formation pending from patient's mother (Dayana Milan [phone]). Discharge planning in progress. Discharge Planning Patient to return back to his residence when psychiatrically stable. René Hodges MD Mar 01, 2018 18:02
[2018-03-02 06:05] VITALS: BP 123/57; PULSE 71; RESP 18; TEMP 97.8; O2SAT 98
[2018-03-02] MEDS: FLUoxetine HCL 20 MG CAP PO SCH (08:29)
[2018-03-02] MEDS: busPIRone HCL 5 MG TAB PO SCH ×2 (08:29→18:00)
[2018-03-02 08:48] LABS: AUTOMATED NEUTROPHIL # 4.7 TH/MM3 (1.8-7.7); BASOPHIL % 0.7 % (0.0-2.0); EOSINOPHIL % 0.7 % (0.0-4.0); HEMATOCRIT 42.4 % (39.0-51.0); HEMOGLOBIN 14.5 GM/DL (13.0-17.0); LYMPH % 19.2 % (9.0-44.0); LYMPHOCYTE # 1.3 TH/MM3 (1.0-4.8); MEAN CELL VOLUME 99.3 FL (80.0-100.0); MEAN CORPUSCULAR HEMOGLOBIN 33.9 PG (27.0-34.0); MEAN CORPUSCULAR HGB CONC 34.2 % (32.0-36.0); MEAN PLATELET VOLUME 8.8 FL (7.0-11.0); MONO % 10.8 % (0.0-8.0); MONOCYTE # 0.7 TH/MM3 (0-0.9); NEUT % 68.6 % (16.0-70.0); PLATELET COUNT 218 TH/MM3 (150-450); RED BLOOD COUNT 4.27 MIL/MM3 (4.50-5.90); RED CELL DISTRIBUTION WIDTH 13.4 % (11.6-17.2); WHITE BLOOD COUNT 6.8 TH/MM3 (4.0-11.0)
[2018-03-02 09:31] LABS: ALBUMIN 4.1 GM/DL (3.4-5.0); ALKALINE PHOSPHATASE 74 U/L (45-117); ALT (GPT) 31 U/L (12-78); AST (GOT) 21 U/L (15-37); BICARBONATE 24.9 MEQ/L (21.0-32.0); BLOOD UREA NITROGEN 13 MG/DL (7-18); CALCIUM 9.5 MG/DL (8.5-10.1); CHLORIDE 106 MEQ/L (98-107); CREATININE 0.78 MG/DL (0.60-1.30); GLOMERULAR FILTRATION RATE 106 ML/MIN (>89); GLUCOSE,RANDOM 88 MG/DL (74-106); SODIUM (NA) 142 MEQ/L (136-145); TOTAL BILIRUBIN ADULT 1.2 MG/DL (0.2-1.0); TOTAL PROTEIN 7.6 GM/DL (6.4-8.2)
--- NOTE | 2018-03-02 14:18 | HHI.PYPN ---
Subjective Remarks Patient seen for follow, chart reviewed. Discussion nursing staff reported the patient noted with flat affect, but denying suicide ideations but is endorsing anxiety today. Patient was found on the day room noted calm and cooperative. Patient states that he is feeling anxious mostly during the day tolerating medications well without adverse drug reactions. Patient states he is considering returning back to work to be able to have more income to be able to provide for his own residence. Patient continues report feeling depressed but states that is improving but denying any suicide ideations today. Review of Systems Except as stated in HPI: all other systems reviewed are Neg Mental Status Examination Appearance: Appropriate Consciousness: Alert Orientation: Person, Place, Date/Time Motor Activity: Normal gait Speech: Unremarkable Language: Adequate Fund of Knowledge: Inadequate Attention and Concentration: Adequate Memory: Unremarkable Mood: Anxious Affect: Anxious Thought Process & Associations: Linear Thought Content: Appropriate Hallucination Type: None Delusion Type: None Suicidal Ideation: Yes (Denies today) Suicidal Plan: No Suicidal Intention: No Homicidal Ideation: No Homicidal Plan: No Homicidal Intention: No Insight: Fair Judgment: Impulsive Results Labs Labs reviewed Test 03/02/18 07:47 White Blood Count 6.8 TH/MM3 Red Blood Count 4.27 MIL/MM3 Hemoglobin 14.5 GM/DL Hematocrit 42.4 % Mean Corpuscular Volume 99.3 FL Mean Corpuscular Hemoglobin 33.9 PG Mean Corpuscular Hemoglobin Concent 34.2 % Red Cell Distribution Width 13.4 % Platelet Count 218 TH/MM3 Mean Platelet Volume 8.8 FL Neutrophils (%) (Auto) 68.6 % Lymphocytes (%) (Auto) 19.2 % Monocytes (%) (Auto) 10.8 % Eosinophils (%) (Auto) 0.7 % Basophils (%) (Auto) 0.7 % Neutrophils # (Auto) 4.7 TH/MM3 Lymphocytes # (Auto) 1.3 TH/MM3 Monocytes # (Auto) 0.7 TH/MM3 Eosinophils # (Auto) 0.0 TH/MM3 Basophils # (Auto) 0.0 TH/MM3 CBC Comment DIFF FINAL Differential Comment Blood Urea Nitrogen 13 MG/DL Creatinine 0.78 MG/DL Random Glucose 88 MG/DL Total Protein 7.6 GM/DL Albumin 4.1 GM/DL Calcium Level 9.5 MG/DL Alkaline Phosphatase 74 U/L Aspartate Amino Transf (AST/SGOT) 21 U/L Alanine Aminotransferase (ALT/SGPT) 31 U/L Total Bilirubin 1.2 MG/DL Sodium Level 142 MEQ/L Potassium Level 3.5 MEQ/L Chloride Level 106 MEQ/L Carbon Dioxide Level 24.9 MEQ/L Anion Gap 11 MEQ/L Estimat Glomerular Filtration Rate 106 ML/MIN Vitals/IOs Vital Signs Date Time Temp Pulse Resp B/P (MAP) Pulse Ox O2 Delivery O2 Flow Rate FiO2 03/02/18 06:05 97.8 71 18 123/57 (79) 98 Assessment & Plan Problem List: (1) Severe episode of recurrent major depressive disorder, without psychotic features ICD Codes: F33.2 - Major depressive disorder, recurrent severe without psychotic features (2) Anxiety disorder, unspecified ICD Codes: F41.9 - Anxiety disorder, unspecified Assessment & Plan Patient reports improvement of depressed mood, denying suicide ideations but continues her endorse feeling anxious during the day but was unable to identify causes for his anxiety. Patient continued to be somewhat preoccupied with his relationship discord with his mother and he is considering plans to be able to make enough money to move out. We will increase buspirone to 5 mg p.o. 3 times daily for anxiety, continue rest of medications. Continue monitor mood and behavior. Discharge planning in progress. Justification for Cont. Inpt. At risk of further decompensation at lower level of care. René Hodges MD Mar 02, 2018 14:18
--- NOTE | 2018-03-02 14:25 | HHI.PR ---
Subjective Remarks Follow-up visit drug overdose on Xanax, Prozac, gabapentin. Patient seen and examined today. Reports he is doing well aside from his depression. Patient states he is trying to cope better. Denies SI/HI. Denies pain and discomfort. Denies SOB/ dyspnea. Denies chest pain, palpitations, headaches, dizziness. Denies fevers, chills, n/v/d. Denies dysuria. Objective Vitals Vital Signs Date Time Temp Pulse Resp B/P (MAP) Pulse Ox O2 Delivery O2 Flow Rate FiO2 03/02/18 06:05 97.8 71 18 123/57 (79) 98 03/01/18 17:16 98.0 56 16 138/69 (92) 98 I/O 03/01/18 03/01/18 03/01/18 03/02/18 03/02/18 03/02/18 07:00 15:00 23:00 07:00 15:00 23:00 Intake Total 240 ml Balance 240 ml Intake Oral 240 ml Result Diagram: 03/02/18 0747 03/02/18 0747 Objective Remarks GENERAL: This is a well-nourished, well-developed patient, in no apparent distress. SKIN: Warm and dry. HEENT: Normocephalic. Pupils equal round and reactive. Nose without bleeding. Airway patent. NECK: Trachea midline. CARDIOVASCULAR: Regular rate and rhythm without murmurs, gallops, or rubs. RESPIRATORY: Clear to auscultation. Breath sounds equal bilaterally. No wheezes , rales, or rhonchi. GASTROINTESTINAL: Abdomen soft, non-tender, nondistended. Bowel Sounds normoactive x4. MUSCULOSKELETAL: Extremities without clubbing, cyanosis, or edema. NEUROLOGICAL: Awake and alert. Oriented to time, place, person. No focal neuro deficit. Moves all extremities. Normal speech. A/P Problem List: (1) Adjustment disorder with mixed disturbance of emotions and conduct ICD Code: F43.25 - Adjustment disorder with mixed disturbance of emotions and conduct (2) Suicide attempt ICD Code: T14.91XA - Suicide attempt, initial encounter (3) Overdose ICD Code: T50.901A - Poisoning by unspecified drugs, medicaments and biological substances, accidental (unintentional), initial encounter Assessment and Plan Mr. Milan is a 47-year-old male. He was medically admitted secondary to a suicide attempt with Gabapentin, Prozac, and Xanax. Adjustment disorder with mixed disturbances of emotion and conduct Suicide attempt -Continue management per psychiatry Gabapentin overdose Prozac overdose Xanax overdose -Labs WNL Hyperlipidemia -LDL 126 -ASCVD risk 2.6% 10 year risk profile -Lifestyle changes recommended. Diet and exercise with sodium restriction. Smoking cessation. Nonpharmacological treatment for now. Patient is not a candidate for statin therapy. DVT prophylaxis ambulatory Stable from Hospitalist standpoint. We will sign off. Reconsult as needed. Akosua Toussaint [facility] Mar 02, 2018 14:25
[2018-03-02 16:16] VITALS: BP 122/67; PULSE 76; RESP 18; TEMP 98.1; O2SAT 99
[2018-03-02] MEDS: hydrOXYzine HCL 50 MG TAB PO PRN (18:10)
[2018-03-02] MEDS: diphenhydrAMINE HCL 50 MG CAP PO PRN (21:03)
[2018-03-03 05:45] VITALS: BP 133/61; PULSE 78; RESP 14; TEMP 98.2; O2SAT 97
[2018-03-03] MEDS: busPIRone HCL 5 MG TAB PO SCH ×3 (08:46→18:00)
[2018-03-03] MEDS: FLUoxetine HCL 20 MG CAP PO SCH (08:46)
--- NOTE | 2018-03-03 09:36 | PD.TTN ---
Patient Problems 1. Discharge planning 2. Medication compliance 3. Knowledge deficit 4. Lack of coping skills Progress Toward Goals Provider Present: Dr. Bebo Hodges Provider Input: 03/03/18 - Dr. Hodges reports the patient will be discharged back to his mother's home by the end of the week. Psychiatric Counselors Present: KENROY Hidalgo Psych Therapist Input: 03/03/18 - Counselor will contact patient's mother to see if she has visited the patient and if she has seen progress in the patient. Group Spec/RT/OT/CHO Present: PURNIMA Mccabe Group Spec/RT/OT/CHO Input: 03/03/18 - Patient is visable in the [place]. Patient has attended select group activities if encouraged. Discharge Plan [facility] 03/03/18 - Patient will be discharged home to his mother's house by the end of this week. He will follow-up with [facility]. Documentation Scribe: KENROY Hidalgo Date Resolved: Mar 03, 2018 Marielena Armijo Mar 03, 2018 09:36
--- NOTE | 2018-03-03 16:36 | HHI.PYPN ---
Subjective Remarks Patient seen for follow-up, chart reviewed. Discussion with nursing staff reported the patient reported feeling less anxious today. Patient was found participating in group activity, states that he continues to feel anxious but less intense today. Patient reports sleeping well, feels rested in the morning. Patient states that his mood is "not too bad". Patient spends time elaborating on how he and his siblings have "fear of my mother" which also have been contributing to his anxiety due to his relationship discord with her. He plans on calling his sister prior to contacting his mother as he states his sister is the interpreter translator in the family. Patient tolerated medications well denying any adverse drug reactions. Patient denies any suicide ideation at this time. Review of Systems Except as stated in HPI: all other systems reviewed are Neg Mental Status Examination Appearance: Appropriate Consciousness: Alert Orientation: Person, Place, Date/Time Motor Activity: Normal gait Speech: Unremarkable Language: Adequate Fund of Knowledge: Inadequate Attention and Concentration: Adequate Memory: Unremarkable Mood: Anxious Affect: Anxious Thought Process & Associations: Linear Thought Content: Appropriate Hallucination Type: None Delusion Type: None Suicidal Ideation: Yes (Denies today) Suicidal Plan: No Suicidal Intention: No Homicidal Ideation: No Homicidal Plan: No Homicidal Intention: No Insight: Fair Judgment: Impulsive Results Vitals/IOs Vital Signs Date Time Temp Pulse Resp B/P (MAP) Pulse Ox O2 Delivery O2 Flow Rate FiO2 03/03/18 05:45 98.2 78 14 133/61 (85) 97 Assessment & Plan Problem List: (1) Severe episode of recurrent major depressive disorder, without psychotic features ICD Codes: F33.2 - Major depressive disorder, recurrent severe without psychotic features (2) Anxiety disorder, unspecified ICD Codes: F41.9 - Anxiety disorder, unspecified Assessment & Plan Patient this time reports improvement in mood, continues to feel anxious but less intense. We will continue current treatment. Continue monitor mood and behavior. Patient encouraged to contact his mother as patient's discharge will likely be within 1-2 days if there continues to be improvement in symptoms. Justification for Cont. Inpt. At risk for further decompensation if at lower level of care René Hodges MD Mar 03, 2018 16:36
[2018-03-03] MEDS: hydrOXYzine HCL 50 MG TAB PO PRN (17:19)
[2018-03-03 18:30] VITALS: BP 142/71; PULSE 71; RESP 17; TEMP 98; O2SAT 97
[2018-03-03] MEDS: ACETAMINOPHEN 325 MG TAB PO PRN (21:46)
[2018-03-03] MEDS: diphenhydrAMINE HCL 50 MG CAP PO PRN (21:46)
[2018-03-04 05:25] VITALS: BP 133/72; PULSE 83; RESP 16; TEMP 97.8; O2SAT 99
[2018-03-04] MEDS: FLUoxetine HCL 20 MG CAP PO SCH (08:28)
[2018-03-04] MEDS: busPIRone HCL 5 MG TAB PO SCH ×3 (08:28→17:20)
[2018-03-04] MEDS: ACETAMINOPHEN 325 MG TAB PO PRN (17:24)
[2018-03-04 18:44] VITALS: PULSE 83; RESP 17; TEMP 97.9; O2SAT 96
[2018-03-05 05:41] VITALS: BP 127/66; PULSE 65; RESP 16; TEMP 97
[2018-03-05] MEDS ORDERED: FLUO40CA PO (07:25)
[2018-03-05] MEDS ORDERED: BUSP5TAB PO (07:25)
--- NOTE | 2018-03-05 08:19 | HHI.PYPN ---
Subjective Remarks LATE ENTRY FOR 03/04/18 -patient seen for follow, chart reviewed. Discussion nursing staff reported the patient to be less anxious and been compliant with medications. Patient was found in the room noted B, cooperative. Patient states that he is planning to meet with his mother this evening, spoke with his sister yesterday. Patient states that he feels the medications are helpful continue to be somewhat preservative on his dynamics with his mother which she states does not agree with him being on treatment. Patient denies any suicide ideations today. Patient reports having improvement with his anxiety. Review of Systems Except as stated in HPI: all other systems reviewed are Neg Mental Status Examination Appearance: Appropriate Consciousness: Alert Orientation: Person, Place, Date/Time Motor Activity: Normal gait Speech: Unremarkable Language: Adequate Fund of Knowledge: Inadequate Attention and Concentration: Adequate Memory: Unremarkable Mood: Anxious Affect: Anxious (Less so today) Thought Process & Associations: Linear Thought Content: Appropriate Hallucination Type: None Delusion Type: None Suicidal Ideation: Yes (Denies today) Suicidal Plan: No Suicidal Intention: No Homicidal Ideation: No Homicidal Plan: No Homicidal Intention: No Insight: Fair Judgment: Impulsive Results Vitals/IOs Vital Signs Date Time Temp Pulse Resp B/P (MAP) Pulse Ox O2 Delivery O2 Flow Rate FiO2 03/05/18 05:41 97.0 65 16 127/66 (86) 03/04/18 18:44 96 Assessment & Plan Problem List: (1) Severe episode of recurrent major depressive disorder, without psychotic features ICD Codes: F33.2 - Major depressive disorder, recurrent severe without psychotic features (2) Anxiety disorder, unspecified ICD Codes: F41.9 - Anxiety disorder, unspecified Assessment & Plan Patient this time noted to have improvement of mood, less anxiety, not endorsing any suicide ideations today. Patient will be with patient's mother this evening as patient likely for discharge tomorrow. We will continue current treatment. We will continue to monitor mood and behavior. Discharge planning in progress. Justification for Cont. Inpt. At risk for further decompensation if at lower level of care René Hodges MD Mar 05, 2018 08:19
--- NOTE | 2018-03-05 09:00 | HHI.DS ---
Psychiatry Discharge Summary Inpatient Psychiatric care?: Yes Advance Directive: No Reason Not Provided: not interested Mental Health AdvanceDirective: No Health Care Proxy: No Admission Admission Date Feb 28, 2018 at 10:50 Admission Diagnosis: (1) Severe episode of recurrent major depressive disorder, without psychotic features ICD Code: F33.2 - Major depressive disorder, recurrent severe without psychotic features (2) Anxiety disorder, unspecified ICD Code: F41.9 - Anxiety disorder, unspecified Brief History Patient is a 47-year-old man, single, no children, domiciled with mother, employed, with a past psychiatric history of depression and anxiety, no previous psychiatric admissions, one previous suicide attempt at the age 13 via overdose, no history of self-injurious behavior, currently followed by outpatient psychiatrist Dr. Chavis, currently on Xanax 0.5 mg p.o. 4 times daily , Prozac 40 mg daily, and gabapentin 200 mg 4 times daily with substance use history significant for remote polysubstance use disorder, no medical history, who was brought in under [place] act after patient had suicide attempt via overdose which patient was admitted to the inpatient psychiatry for further evaluation and management. As per chart [place] act states that supervisor dyer at [facility] and call patient and reported patient had consumed large amount of narcotics. Patient feeling being a burden to his mother and employer. Patient overdosed on alprazolam to . Patient was found sitting in hospital bed B, cooperative, seen by rfp writer, nurse and counselor. Patient states "I have "broken record syndrome" referring to his ongoing treatment for depression and anxiety. Patient states he had been feeling stressed with his mother wanting to move out of the home but unable to due to financial difficulties. Patient states that he had overdosed on his medications while he was in his vehicle parked and had contacted his coworker he was soon be arriving to his work but also had reported that he had overdosed on his medications which please have been alerted and found patient in vehicle after he had passed out and brought to the hospital. Patient states he has been having suicide ideations for the past 2 weeks, has been researching on effects of his medications if overdosed on his medications, and had specific plan 1 week ago. Patient reports that his stressors have been having received a final notice at work due to mismanagement of [employer]. Patient states that he has also been very stressed with his relationship with his mother and earlier today had spoken to her over the phone and was told "are you done playing tricks" which he feels that he is not supported by his mother for his mental illness. Patient states that he had been having difficulty with sleep lately with decreased energy, and appetite along with feeling depressed for the past couple of weeks and suicide ideations. Patient currently reports feeling anxious denying any suicide ideations at this time and states that he is glad to be alive. Patient denies any perceptual services or delusions at this time. Family psychiatric history: Sister niece diagnosed with depression and anxiety, no suicides in the family Past psychiatric history: Previous psychiatric diagnosis of depression and anxiety, no psychiatric admissions, one remote suicide attempt at the age of 13 via overdose, no history of self-injurious behavior, no history of abuse. Patient currently with outpatient psychiatrist Dr. Chavis, last seen a couple of weeks ago, currently on Xanax 0.5 mg 4 times daily, Prozac 40 mg daily, gabapentin 200 mg 4 times daily. Substance use history: Remote history of marijuana, crack, cocaine, ecstasy, prescription of Vicodin use. Patient denies any use of any alcohol, denies any previous rehabilitation or detox programs. Past medical history: Denies Allergies: Paxil Social history: Single, no children, domiciled with mother, employed, no legal history, no history of service, no access to firearms, highest education is some college courses. Tobacco Use In Past 30 Days: No Tobacco Past 30 Days Alcohol Use: Never Hospital Course Patient is a 47-year-old man, single, no children, domiciled with mother, employed, with a past psychiatric history of depression and anxiety, no previous psychiatric admissions, one previous suicide attempt at the age 13 via overdose, no history of self-injurious behavior, currently followed by outpatient psychiatrist Dr. Chavis, currently on Xanax 0.5 mg p.o. 4 times daily , Prozac 40 mg daily, and gabapentin 200 mg 4 times daily with substance use history significant for remote polysubstance use disorder, no medical history, who was brought in under [place] act after patient had suicide attempt via overdose which patient was admitted to the inpatient psychiatry for further evaluation and management. Patient continued on CIVA protocol due to chronic benzodiazepine use but was not observed to have had any withdrawal symptoms. Patient was continued on fluoxetine 40 mg p.o. daily, started buspirone 5 mg p.o. three times daily. Patient tolerated medications well with no notable adverse drug reactions. Patient was noted to endorse depressed and anxious mood due to relationship discord with his mother which contributed to his initial overdose. Throughout hospitalization he was noted to have improvement of mood and cessation of suicidal ideation. He was observed by staff to not have had any behavioral disturbances, not having made any suicidal or homicidal statements and maintained stable mood through admission and was noted to participate with staff adequately. Patient was noted to engage with staff and not noted to be internally preoccupied or responding to internal stimuli as per observation of behavior during hospitalization. Patient was agreeable to returning back to [facility] residence whom prior to discharge was agreeable to have patient return home. Upon discharge patient stated that she was feeling good, reported feeling well with the treatment, as well as motivation to continue recommendations and denied any SI, HI, perceptual disturbances or delusions. Weighing the acute, chronic, and protective factors and based on the available evidence, I messenger copy to a reasonable degree of medical certainty that the patient is at low imminent risk of harm to self or others from a mental illness as defined under the [place] act and his level of function is adequate as observed on the unit for planned level of outpatient care. He was counseled regarding warning signs for need to return to the psychiatric emergency room as part of a general safety plan. Patient advised to call 911 or go nearest ED in case of emergency. Patient agreed with plan. Results Blood Pressure 127 / 66 Vital Signs Date Time Temp Pulse Resp B/P (MAP) Pulse Ox O2 Delivery O2 Flow Rate FiO2 03/05/18 05:41 97.0 65 16 127/66 (86) 03/04/18 18:44 96 Laboratory Results Test 03/01/18 07:45 Cholesterol Level 195 MG/DL (120-200) HDL Cholesterol 51.3 MG/DL (40.0-60.0) Hemoglobin A1c 5.5 % (4.3-6.0) LDL Cholesterol 126 MG/DL (0-99) Triglycerides Level 89 MG/DL (42-150) Summary of Procedures none Pending results at discharge: No Medications # of Antipsychotic meds at D/C: 0 Approp Antipsych med options 1 - Minimum of three failed multiple trials of monotherapy. 2 - Documented plan to taper to monotherapy due to previous use of multiple meds OR cross-taper in progress at D/C. 3 - Documentation of augmentation of Clozapine. 4 - Justification other than those listed in allowable values 1-3, document here : Discharge Discharge Date: Mar 05, 2018 Discharge Diagnosis: (1) Severe episode of recurrent major depressive disorder, without psychotic features ICD Code: F33.2 - Major depressive disorder, recurrent severe without psychotic features (2) Anxiety disorder, unspecified ICD Code: F41.9 - Anxiety disorder, unspecified Pt Condition on Discharge: Stable Discharge Disposition: Discharge Home Discharge Instructions Diet Instructions: As Tolerated, No Restrictions Activities you can perform: Regular-No Restrictions Discharge Time > 30 minutes Mental Status Examination Appearance: Appropriate Consciousness: Alert Orientation: Person, Place, Date/Time Motor Activity: Normal gait Speech: Unremarkable Language: Adequate Fund of Knowledge: Inadequate Attention and Concentration: Adequate Memory: Unremarkable Mood: Appropriate Affect: Appropriate Thought Process & Associations: Intact, Goal directed, Linear Thought Content: Appropriate Hallucination Type: None Delusion Type: None Suicidal Ideation: No Suicidal Plan: No Suicidal Intention: No Homicidal Ideation: No Homicidal Plan: No Homicidal Intention: No Insight: Fair Judgment: Impulsive Discharge/Advance Care Plan Health Problems: (1) Severe episode of recurrent major depressive disorder, without psychotic features (2) Anxiety disorder, unspecified Goals to promote your health * To prevent worsening of your condition and complications * To maintain your health at the optimal level Directions to meet your goals Take your medications as prescribed Follow your dietary instruction Follow activity as directed Keep your appointments as scheduled Take your immunizations and boosters as scheduled If your symptoms worsen call your PCP, if no PCP go to Urgent Care Center or Emergency Room For 01/06 questions related to your inpatient stay or results of tests pending at discharge, please contact Dr. René Hodges at Smoking is Dangerous to Your Health. Avoid second hand smoking René Hodges MD Mar 05, 2018 09:00
[2018-03-05] MEDS: busPIRone HCL 5 MG TAB PO SCH (10:07)
[2018-03-05] MEDS: ACETAMINOPHEN 325 MG TAB PO PRN (10:08)
[2018-03-05] MEDS: FLUoxetine HCL 20 MG CAP PO SCH (10:08)
[2018-03-05 11:13] VITALS: RESP 18
== END 2018-03-05 12:00 | disposition home or self-care (01) | DRG 885 ==
LOC: H260 10:50
PROVIDERS: ADMIT Student in an Organized Health Care Education/Training Program; ATTEND Student in an Organized Health Care Education/Training Program
DX: F33.2 Major depressive disorder, recurrent severe without psychotic features (principal); F41.9 Anxiety disorder, unspecified; Z91.5 Personal history of self-harm; T50.992D Poisoning by other drugs, medicaments and biological substances, intentional self-harm, subsequent encounter
CPT/HCPCS: 80053; 80061; 83036; 85025; Q0163